=== PATIENT | female | born 1970 | race Asian ===

== ENCOUNTER 2024-07-17 06:26 | Day surgery (SDC) | payer OTHER, SELFPAY | END 2024-07-17 14:51 | disposition home or self-care (01) | LOC: GI 06:26 | PROVIDERS: ATTENDING PHYSICIAN Specialist; FAMILY PHYSICIAN Internal Medicine | DX: Z12.11 Encounter for screening for malignant neoplasm of colon (principal); Z86.0101 Personal history of adenomatous and serrated colon polyps | CPT/HCPCS: G0105 ==

== ENCOUNTER → 2024-08-21 13:48 | Outpatient (REF) | payer OTHER, SELFPAY | LOC: HWWDC 13:48 | PROVIDERS: ATTENDING PHYSICIAN Internal Medicine | DX: E01.0 Iodine-deficiency related diffuse (endemic) goiter (principal); Z12.31 Encounter for screening mammogram for malignant neoplasm of breast | CPT/HCPCS: 76536 ==

== ENCOUNTER → 2024-10-21 09:27 | Outpatient (REF) | payer OTHER, SELFPAY ==
[2024-10-21 09:44] VITALS: BP 150/81; BP_SYST 91
== END ==
LOC: RADI 09:27
PROVIDERS: ATTENDING PHYSICIAN Internal Medicine
DX: E04.1 Nontoxic single thyroid nodule (principal)
CPT/HCPCS: 10005; 88173